=== PATIENT | male | born 1985 | race Caucasian/White ===

== ENCOUNTER 2016-06-05 10:26 | Emergency (ER) | payer BC ==
[~2016-06-05] VITALS: Ht 190.5 cm; Wt 86.2 kg
[2016-06-05] MEDS ORDERED: MORPHINE SULFATE 4 MG/ML SYRG ONE (11:34)
[2016-06-05] MEDS ORDERED: ONDANSETRON HCL 4 MG/2 ML VIAL ONE (11:34)
[2016-06-05] MEDS ORDERED: MORPHINE SULFATE 4 MG/ML SYRG IV ONE ×2 (11:45→13:45)
[2016-06-05] MEDS ORDERED: ONDANSETRON HCL 4 MG/2 ML VIAL IV ONE ×2 (11:45→13:45)
[2016-06-05] MEDS ORDERED: LIDOCAINE 1% HCL (LOCAL ANESTH.) INJ 20ML MDV IJ ONE (13:15)
[2016-06-05] MEDS ORDERED: HYDROmorphone HCL 2 MG/ML VL IV ONE ×2 (14:30)
[2016-06-05] MEDS ORDERED: PROMETHAZINE HCL 25 MG/ML 1ML IV ONE (14:30)
[2016-06-05 14:55] VITALS: BP 143/69
== END 2016-06-05 16:13 | disposition short-term general hospital (02) ==
LOC: ER 10:35
DX: S63.004A Unspecified dislocation of right wrist and hand, initial encounter (principal); S52.501A Unspecified fracture of the lower end of right radius, initial encounter for closed fracture; S52.611A Displaced fracture of right ulna styloid process, initial encounter for closed fracture; V29.60XA Unspecified motorcycle rider injured in collision with unspecified motor vehicles in traffic accident, initial encounter; Y93.89 Activity, other specified; Y99.9 Unspecified external cause status; Y92.89 Other specified places as the place of occurrence of the external cause
CPT/HCPCS: 29125; 73110; 73200; 96374; 96375; 96376; 99285; J1170; J2001; J2270; J2405; J2550